=== PATIENT | female | born 1995 | race Caucasian/White ===

== ENCOUNTER 2020-04-09 00:34 | Inpatient (IN) | payer OTHER ==
[~2020-04-09] VITALS: Ht 160 cm; Wt 70.4 kg
--- NOTE | 2020-04-09 00:45 | NUR ---
PATIENT ARRIVED TO FLOOR VIA WC. ADMISSION ASSESSMENT COMPLETE, VITALS COMPLETE, VSS. A+O. IV IN R AC UPON ARRIVAL, BRISK BLOOD RETURN, FLUSHES WELL. LOOKBACK COORDINATOR IN ROOM, DR JOSHI IN ROOM TO CONSULT. NEW ORDERS RECEIVED. PT STATES NO PAIN AT THIS TIME, NO NAUSEA OR DISCOMFORT. ORIENTED TO ROOM. CALL LIGHT IN REACH, WILL CONT TO MONITOR.
--- NOTE | 2020-04-09 01:50 | NUR ---
PT ON PHONE, STATED TO LISTENER THAT SHE WAS IN "REAL PAIN", DEMONSTRATING ANXIETY RE: UPCOMING PROCEDURE. POST CALL, THIS RN ASSESSED PAIN TO WHICH PT REPORTS NO PAIN OR DISCOMFORT AT ALL, AND REFUSES PAIN MEDICATIONS. THIS RN ENCOURAGED PT TO DISCUSS ANY CONCERNS OR QUESTIONS RELATED TO PLAN OF CARE/SURGERY/ETC, PT STATES NO CONCERNS AT THIS TIME.
--- NOTE | 2020-04-09 02:46 | NUR ---
THIS RN IN ROOM TO HAVE CONSENT TO SURGERY FORM SIGNED. PT STATES NO QUESTIONS AT THIS TIME, JUST OVERALL ANXIOUS ABOUT HAVING PROCEDURE. WARM BLANKETS PROVIDED, PT RESPONDED WELL TO VERBAL REASSURANCE. CALL LIGHT IN REACH. WILL CONT TO MONITOR.
--- NOTE | 2020-04-09 04:05 | NUR ---
ROUNDED ON PATIENT, IN BED WITH EYES CLOSED. BREATHING EVEN AND UNLABORED. NO APPARENT NEEDS. CALL LIGHT IN REACH.
--- NOTE | 2020-04-09 05:23 | NUR ---
VITALS COMPLETE, ASSESSMENT COMPLETE. PT STATES DOES NOT NEED TO VOID. IVF INFUSING WNL. SCHEDULED MEDS GIVEN, PRN TORADOL ADMINISTERED FOR 7/10 ABDOMINAL PAIN. PT REPORTS NO OTHER NEEDS AT THIS TIME, CALL LIGHT IN REACH.
--- NOTE | 2020-04-09 06:41 | NUR ---
PT ENCOURAGED TO GET UP TO BR TO VOID, 300 ML OUT. PT DROWSY. BACK TO BED, BLANKETS PROVIDED, IVF INFUSING WNL. I/O'S COMPLETE. CALL LIGHT IN REACH, NO OTHER NEEDS AT THIS TIME.
--- NOTE | 2020-04-09 07:19 | NUR ---
In room for shift report from Amanda REED and Mary REED. Report included: Pt admitted for RUQ abdominal pain, due to have a Laparoscopic Cholecystectomy today sometime. Pt has been very groggy, had some pain this morning getting her PRN pain med. Pt is NPO. Pt is getting LR @ 125 and voiding sufficiently. Pt currently in bed, groggy but able to greet us upon introdctions. Pt lying in bed, side rails up x2, table and call light within reach.
--- NOTE | 2020-04-09 08:09 | NUR ---
PATIENT RESTING IN BED. WHITE BOARD UPDATED. SETS UP BATHROOM FOR SHOWER. HIBICLEANS PROVIDED FOR SHOWER. IV WRAPPED. CALL LIGHT WITHIN REACH. NO OTHER NEEDS AT THIS TIME
--- NOTE | 2020-04-09 09:15 | NUR ---
In room for assessment and med pass. Pt able to get all meds without difficulty. Pt IV fluids restarted. Pt assessment complete, VSS. Pt reports minimal pain in her RUQ abdomen, denies nausea. Pre-procedure checklist completed, LR fluids hung with straight tubing on the bed IV pole. Pt in bed, table and call light within reach.
--- NOTE | 2020-04-09 09:19 | NUR ---
SWABBED BOTH NOSTRILS FOR RAPID COVID TEST
--- NOTE | 2020-04-09 09:26 | NUR ---
PATIENT RESTING IN BED. RN IN ROOM. VITAL SIGNS AND I&O DONE. CALL LIGHT WITHIN REACH. NO OTHER NEEDS AT THIS TIME
[2020-04-09] MEDS ORDERED: HYDROCODON-ACE1 EA10 PO (09:31)
[2020-04-09] MEDS ORDERED: METRONIDAZOLE500 MG PO (09:32)
--- NOTE | 2020-04-09 09:50 | NUR ---
Pt taken to surgery with photo graphics librarian and chart. Pt has fluids hung and SCDs on bed.
--- NOTE | 2020-04-09 10:30 | NUR ---
Attempted to see Rere, she has left for surgery.
--- NOTE | 2020-04-09 12:45 | NUR ---
CHECKING ON PT DISCOVERED SHE WAS TAKEN TO OR FOR SURGERY. WILL FOLLOW
--- NOTE | 2020-04-09 13:44 | NUR ---
04/09/20 1344 Sheets,Stacy 1336 PT ARRIVED TO PACU ON 6L VIA MASK, PT ASLEEP AND JAW THRUST USED OFF AND ON TO MAINTAIN AIRWAY. VSS. 1341 PT WOKE TO TACTILE STIMULI AND IS REORIENTED TO PACU. PT DENIES PAIN AND EASILY FALLS BACK TO SLEEP.
--- NOTE | 2020-04-09 15:44 | NUR ---
To room for rounding and hourly vitals. Pts VSS, breathing even and unlabored. Pt given water, jello, and new bag of LR hung. Pt would like to sleep. Pt in bed, side rails up x3, table and call light within reach.
--- NOTE | 2020-04-09 16:30 | NUR ---
In room for hourly rounding. Pts VSS. Pt in bed, table and call light within reach.
--- NOTE | 2020-04-09 17:04 | NUR ---
In room for post op vitals and rounding. Pt in bed, resting, eyes closed. Pt alert and oriented with greeting. Pts VSS, denies pain and nausea at this time. Pt able to keep down water, ice amd jello. Pt sitting in bed, semi fowlers, having dinner. Table and call light within reach.
--- NOTE | 2020-04-09 17:28 | NUR ---
MED REC COMPLETE
--- NOTE | 2020-04-09 17:42 | NUR ---
PATIENT USING THE BATHROOM. PATIENT BACKS TO BED. ONE PERSON ASSISTING. FRANCISCO IS LEAKING. RN NOTIFIED. VITAL SIGNS DONE BY RN. I&O DONE. CALL LIGHT WITHIN REACH. NO OTHER NEEDS AT THIS TIME
--- NOTE | 2020-04-09 17:59 | NUR ---
In room for med pass. Pt reports 5/10 pain and got PRN tylenol as ordered. pt able to take med without difficulty. Pt in bed, table and call light within reach.
--- NOTE | 2020-04-09 19:00 | NUR ---
REPORT RECEIVED FROM PAULA REED. PT RESTING IN BED, UP TO BR TO VOID, VITALS COMPLETE. CALL LIGHT IN REACH, WILL CONT TO MONITOR.
--- NOTE | 2020-04-09 20:16 | NUR ---
SCHEDULED MEDICATIONS ADMINISTERED, VITALS AND I/O'S COMPLETE, ASSESSMENT COMPLETE. PT DROWSY IN BED. LAP SITES X4 WITH SMALL AMOUNT DRIED DRAINAGE. BOWEL TONES ACTIVE, PT STATES NO PAIN AT THIS TIME "JUST TIRED". IVF INFUSING WNL. SCDS IN PLACE. CALL LIGHT IN REACH, NO NEEDS AT THIS TIME.
--- NOTE | 2020-04-09 21:00 | NUR ---
CALL LIGHT ANSWERED. SBA TO THE BATHROOM AND BACK TO BED. NO OTHER NEEDS AT THE TIME. SCD'S ON.
--- NOTE | 2020-04-09 22:45 | NUR ---
ROUNDED ON PATIENT, IN BED WITH EYES CLOSED. RR EVEN, UNLABORED BREATHING. NO APPARENT DISTRESS OR NEEDS. WILL CONT TO MONITOR.
--- NOTE | 2020-04-10 00:45 | NUR ---
ROUNDED ON PATIENT, IN BED WITH EYES CLOSED. BREATHING UNLABORED. NO APPARENT NEEDS. CALL LIGHT IN REACH.
--- NOTE | 2020-04-10 02:16 | NUR ---
VITALS AND I/O'S COMPLETE, ASSESSMENT COMPLETE. SCHEDULED MEDICATIONS ADMINISTERED. PT IN BED, DROWSY, STATES NO PAIN, NO NEEDS. CALL LIGHT IN REACH, WILL CONT TO MONITOR.
--- NOTE | 2020-04-10 04:50 | NUR ---
ROUNDED ON PATIENT, NEW BAG IVF HUNG, PT ASLEEP IN BED. NO NEEDS AT THIS TIME, WILL CONT TO MONITOR.
--- NOTE | 2020-04-10 07:14 | NUR ---
In room for shift report from Amanda RN & Joanne RN. Pt report included: Pt had not gotten up much last night, but was able to void quantity sufficient. Pt denied pain and nausea throughout the evening. Pt was reported to be very groggy last night. Pt still having irritated throat, likely from her surgery and airway placed. Pt currently lying in bed, eyes closed, breathing even and unlabored, table and call light within reach.
--- NOTE | 2020-04-10 08:27 | NUR ---
PATIENT WAS STILL SLEEPING WILL CHECK BACK IN AND SEE IF PATIEINT WANTS BREAFAST AND TO TAKE A WALK IN THE HALLWAY
--- NOTE | 2020-04-10 08:50 | NUR ---
In room for med pass and assessment. Pts unbilical lap site was bleeding outside of normal amounts, had saturated part of her gown and the blanket above it, about three layers of cloth. The umbilical lap site had some congealled blood pooled within the area under the steri strips. I calmed and reassured the pt with therapeutic communication. district home economics agent was in meeting, another RN called to beside. district home economics agent also notified to assess. All three RNs agreed to clean the blood around the area and leave the congealed blood since it was under the steri strips and seems to bleed actively when we move it. ABD pad covered over the site and taped. Pt calm and VSS. MD Coombs notified over the phone. requests that we keep "gauze" or abd covering it until he can get here in an hour or so. Pt in bed, side rails up, table and call light within reach.
--- NOTE | 2020-04-10 09:00 | NUR ---
Spoke with Rere. She lives in [place] and see Dr. Umanzor, she is unsure of their first name. She lives with her boyfriend in a [place]. He works and will assist her with any needs. Friend will drive her to [place]. Plans on dc to home when cleared by Dr. Duckworth.
--- NOTE | 2020-04-10 10:00 | NUR ---
In room for rounding. Pt umbilical lap site dressing has blood soaking into side touching site, but hasn't soaked through ABD pad. Site assessed and does not appear to be actively bleeding. Blood still pooled and congealed around umbilicus. Pt reports minimal tolerable pain, and no nausea. Pt requests to remove SCDs "for a bit" because her legs are sweating. Pt was told we could remove them for a while, then when I come back around 11 for a med pass, I will help her to the bathroom and we will restart her SCDs then. Pt in bed, side rails up x2, table and call light within reach.
--- NOTE | 2020-04-10 10:11 | NUR ---
PATIENT IS IN BED, VITAL SIGNS DONE, PATIENT NEEDED NOTHING ELSE AT THIS TIME
--- NOTE | 2020-04-10 11:03 | NUR ---
In room for med pass. Pt still feeling somewhat sleepy. Pt medical technologist generalist complete, pt disconnected from her IV so she can walk to the bathroom and so we can ambulate in the halls. Pt up to bathroom and able to void. Pt able to ambulate with SBA, pt walked down to CCU wall and back. Pt denies nausea and dizziness. Pt reports tolerable 5/10 pain. New ABD pad placed over umbilical lap site. Pt back to bed, SCDs on, table and call light within reach. IV fluids restarted as ordered.
--- NOTE | 2020-04-10 12:04 | NUR ---
In room, MD at bedside. MD assessed pts umbilical incision site and Sherie drain site. MD pulled external clot and cleaned the site, covered it in gauze and tape. MD also pulled sherie drain and covered it in gauze and tape. Pt tolerated well. MD reports that pt will stay overnight one more day to observe and monitor bleeding. Pt has been able to pass gas but no BM yet. Pt voiding without difficulty, quantity sufficient. Pt in bed, table and call light within reach.
--- NOTE | 2020-04-10 13:29 | NUR ---
In room for rounding. Pt reports 5/10 pain and denies nausea. Pt VSS. Pt up to bathroom. Pt able to ambulate in hallways, walking to CCU wall and back. Pt dressing on umbilical lap site was saturated, new gauze placed, and new tape applied. Pt back to bed, table and call light within reach.
--- NOTE | 2020-04-10 14:14 | NUR ---
In room for pt care. Pt reports 7/10 intolerable pain after walking this afternoon. PRN pain med given. Pt in bed, table and call light within reach. Breathing even and unlabored, VSS.
--- NOTE | 2020-04-10 14:26 | NUR ---
PT IS ALERT, ORIENTED AND WILL STAY AGAIN TONIGHT DUE TO SLIGHT BLEEDING AT INCISION.PT STATED THAT SHE FELT BETTER STAYING TONIGHT. PT HAS RECENTLY MOVED FROM [facility], AND STILL IN ADJUSTMENT. CONCERNED ABOUT PREPARATIONS FOR WINTER, GAVE ENCOURAGEMENT. BLESSING GIVEN, WILL FOLLOW
--- NOTE | 2020-04-10 15:10 | NUR ---
In room for rounding. Pt resting in bed, eyes closed, breathing even and unlabored. Table and call light within reach.
--- NOTE | 2020-04-10 17:38 | NUR ---
In room for rounding. Pt in bed, denies nausea at this time reports 3/10 tolerable pain. Pt up to bathroom and able to void. Pt back to bed. New abd and gauze placed over umbilical lap site which is still bleeding at a slow trickle. Pt in bed, sitting up, having dinner. Table and call light within reach.
--- NOTE | 2020-04-10 20:35 | NUR ---
PATIENT REPORT GIVEN TO ME BY BRIANNA MURPHY, AND PATIENT RESTING IN BED PLAYING ON HER PHONE AT THIS TIME. CALL LIGHT IN REACH.
--- NOTE | 2020-04-10 21:01 | NUR ---
PER PERMANENT MOLD SUPERVISOR PATIENT ASKED FOR COOKIES. PROVIDED. ICE WATER REFILLED. NO OTHER NEEDS AT THIS TIME.
--- NOTE | 2020-04-10 21:34 | NUR ---
EXHIBIT BUILDER WAS ASKED BY CECIL REED TO TALK WITH PT ABOUT HER DRESSING. SHE IS APPREHENSIVE ABOUT IT AND STATES DURING THE DAY THE DRESSING WAS CHANGED FREQUENTLY. CECIL REED AND THIS RN EXPLAINED TO THE PT THAT WE DO NOT HAVE ORDERS TO CHANGE THE DRESSING AND THAT IT IS NOT LEAKING AND DOING FINE SO WE DO NOT WANT TO INTRODUCE MORE BACTERIA NOR CAUSE A CLOT TO BREAKFREE CAUSING MORE BLEEDING. PT STATED SHE WANTS US TO AT LEAST LIFT THE DRESSING AND LOOK AT IT SO SHE WOULD FEEL BETTER. PER PT REQUEST THIS RN PULLED CORNER OF TAPE UP TO SEE THE GAUZE UNDERNEATH, IT HAS SANGUINOUS DRAINAGE BUT THE WHOLE GAUZE WAS NOT SATURATED AND IT WAS NOT LEAKING. ADVISED THE PT WE WILL CHECK ON IT AND LONG IT IS NOT LEAKING IT IS DOING IT'S JOB. PT APEARED HAPPY WITH THIS AND DENIES FURTHER NEEDS.
--- NOTE | 2020-04-10 23:30 | NUR ---
PATIENT RESTING QUIETLY, EYES CLOSED, NO SIGNS OF DISTRESS OR PAIN, CALL LIGHT IN REACH. RESPIRATIONS REGULAR AND EVEN.
--- NOTE | 2020-04-10 23:59 | NUR ---
PATIENT RESTING QUIETLY IN BED, SCD'S ON EYES CLOSED, RESPIRAATIONS REGULAR AND EVEN AND CALL LIGHT IN REACH.
--- NOTE | 2020-04-11 01:29 | NUR ---
PATIENT RESTING QUIETLY SUPINE WITH REGULAR EVEN RESPIRATIONS, EYES CLOSED, CALL LIGHT IN REACH.
--- NOTE | 2020-04-11 03:06 | NUR ---
PATIENT 3AM ANTIBIOTIC HUNG, PATIENT'S PAIN IS UNDER CONTROL, PATIENT UP TO THE BATHROOM 1PSBA AND THEN BACK TO BED 1PSBA, PATIENT GOING TO TRY AND GO BACK TO SLEEP. CALL LIGHT IN REACH.
--- NOTE | 2020-04-11 04:46 | NUR ---
PATIENT JUST WOKE UP AND SAID SHE WAS HAVING A NECK ACHE. PATIENT REQUESTED TO HAVE SOMETHING FOR 8/10 NECK ACHE. 650MG PO TYLENOL GIVEN. PATIENT A LITTLE CONFUSED, SHE HAD THE DATE RIGHT, BUT THOUGHT IT WAS EVENING NOT MORNING, REORIENTED EASILY AND IS GOING TO TRY AND GET SOME MORE SLEEP BEFORE BREAKFAST. CALL LIGHT IN REACH.
--- NOTE | 2020-04-11 05:08 | NUR ---
PATIENT WAS VERY ANXIOUS AT THE BEGINING OF THE SHIFT AND WANTING ME TO CHANGE HER ABD DRESSING, THERE WAS SOME BLEEDING ON DAYSHIFT AROUND THE UMBILICUS LAP SITE, BUT THE DREWSSING IS CDI, FOAM TAPE OVER A ABD PAD AND SOME GAUZE. PATIENT IS WORRIED ABOUT CONTINUED BLEEDING AND INFECTION IF I DIDN'T LOOK UNDERS THE DRESSING. HAD MING THE CHARGE NURSE COME IN TO TALK WITH PATIENT WELL, THAT REMOVING THE CDI DRESSING COULD START BLEEDING OVER AND THAT THE MORE WE OPENED UP THE DRESSING THE GREATER RISK TO INFECTION. PATIENT FINALLY SEEMED TO UNDERSTAND WHAT WE WERE TRYING TO TELL HER. PATIENT WAS C/O 11/16 ABD PAIN AND WAS GIVEN 6MG IV MORPHINE AND SOME IV TORADOL AND THIS TOOK CARE OF HER PAIN UP TO THIS PRESENT TIME. PATIENT AMBULATES WELL TO THE BATHROOM WITH 1PSBA AND BACK TO BED, DRESSING REMAIN CDI ON THE ABD AND OTHER 3 LAB SITES HAVE DRIED STERISTRIPS IN PLACE. PATIENT HAS APPEARED TO SLEEP WELL MOST OF THE SHIFT UNLESS GETTING UP TO USE THE BATHROOM. PATIENT CONTINUES TO REST EYES CLOSED WITH CALL LIGHT IN REACH.
--- NOTE | 2020-04-11 07:00 | NUR ---
In room for shift report from Hill REED. Report included: Pt was very anxious about her lap umbilical lap site bleeding throughout the night. Pt had reached pain of 7/10 last night and got 6 of morphine. Pt slept throughout the rest of the night. Pt currently, up to bathroom. Pt back to bed, fluids reconnected and started, table and call light within reach.
--- NOTE | 2020-04-11 07:40 | NUR ---
UP TO BATHROOM, DRSG CDI TO UMBILICUS THIS AM, PT STATES SHE IS HUNGRY AND HAS ORDERED BREAKFAST, DOES NOT WANT TO SIT UP IN CHAIR YET, STATES ITS TO COLD, TEMP ADJUSTED IN ROOM. DENIES ANY NEEDS. CALL LIGHT IN EASY REACH.
--- NOTE | 2020-04-11 08:00 | NUR ---
DRSG WAS LOOSE ON R EDGE AND JASMINE RED BLOOD WAS NOTED DRAINING WHEN PT WALKED INTO BATHROOM, NOTED BLOOD ON PAD AND DRAW SHEET ON BED WELL AFTER PT WAS UP. REMOVED DRSG WHEN PT RETURNED TO BED AND LARGE BLOOD CLOT WAS OVER UMBILICUS AND EXTENDING ALONG R SIDE OF DRSG, UNABLE TO TELL UNTIL REMOVED IF ACTIVELY BLEEDING. NO BLOOD FROM UMBILICUS AND CLEAN GAUZE DRESSING AND FOAM TAPE REAPPLIED. WILL MONITOR CLOSELY.
--- NOTE | 2020-04-11 10:33 | NUR ---
In room for assessment and med pass. Pt reports 8/10 intolerable pain, no nausea. Pt given PRN toradol per orders. Pt up to chair, ice pack given for abdomen. Pt denies dizziness upon standing. Pt agrees to ambulate this morning. Pt practices deep breathing exercises x10. Pts umbilical lap site was changed new sterile gauze and tape applied. Pts site seems to be bleeding at a trickle. Pt denies further needs at this time. Pt in chair, table and call light within reach.
--- NOTE | 2020-04-11 11:11 | NUR ---
In room for med pass. Pt in chair. Pt denies nausea and reports 3/10 pain. Pt would like to go back to bed. Pt ABX started and given as ordered per protocol. Pt in bed, table and call light within reach.
--- NOTE | 2020-04-11 11:30 | NUR ---
Donita GUERRA to floor. Zainab RN and this RN report to MD about the pts bleeding from her umbilical site, that the pt was given 6mg of morphine last night along with her toradol, and that when we got here this morning, the site had another large clot and blood had dripped from the site around to the pts back in the bed. informed that the dressing had to be changed x4 yesterday. asked if the pt was getting oral pain meds and was told that she had IV meds last night and we gave her IV toradol this morning for 8/10 pain, in order to get her up and ambulating. stated "I don't care about what pain they report, she needs to be on oral pain meds" So I have to go in there now and type and order for only oral pain meds?" He also mentioned "This is a nursing problem not a problem for me." In response to all of this, states "You know what, nevermind, I'll see her later, I'm not seeing her now. Wasting my time." And leaves the floor. Pt bleeding not assessed by . Pt not assessed by MD. No new orders given.
--- NOTE | 2020-04-11 12:40 | NUR ---
In room for rounding. Pt up to bathroom, and back to bed. Pt reports 3/10 tolerable pain, denies nausea at this time. Pt in bed, table and call light within reach.
--- NOTE | 2020-04-11 14:47 | NUR ---
In room for rounding. Pt resting in bed, lying down, eyes closed, breathing even and unlabored, table and call light within reach.
--- NOTE | 2020-04-11 15:30 | NUR ---
In room for rounding. Pt resting in bed, eyes closed, breathing even and unlabored, table and call light within reach.
--- NOTE | 2020-04-11 15:37 | HP ---
[facility] [address], [place] [address] Signed ADMISSION DATE: 04/09/2020 REASON FOR ADMISSION: Acute calculous cholecystitis, possible choledocholithiasis. HISTORY OF PRESENT ILLNESS: This 24-year-old white woman lives in [place], [place]. She is accompanied by her boyfriend. I was called late in the evening on April [address] Tia Umanzor in [place], [place]. The patient presented once again to his care with severe epigastric and abdominal pain. The patient has been seen the night before with similar findings and a CT scan was performed, which was said to be normal. Lab studies and so forth that were obtained initially were normal, but repeat labs showed elevated liver enzymes including a bilirubin of 1.6. The patient had been anticipated to undergo ultrasound evaluation of the gallbladder for possible biliary disease, but [facility] no longer has an applied technologist. A plan for ultrasound evaluation in [place], [place] was scheduled for today. The patient did not show for her visit as her symptoms had improved and she carries no health insurance and therefore did not show further evaluation. Her representation to Dr. Umanzor prompted the lab studies, which showed elevated liver enzymes including bilirubin and concern for possible choledocholithiasis as her symptoms were significantly increased. I was called by Dr. Umanzor in assistance and accepted her in transfer by personally owned vehicle for further evaluation. Since her arrival to the hospital, she continues to have epigastric and right subcostal pain. A gallbladder ultrasound was performed at the bedside, which I witnessed at approximately 1:00 a.m. This showed multiple stones in the gallbladder, gallbladder wall thickening, and a common bile duct slightly dilated at 5 mm. PAST MEDICAL HISTORY: Rather unremarkable. She does smoke cigarettes. She denies any drug use. FAMILY HISTORY: She has family history of biliary disease and a sister who had cholecystectomy a number of years ago. SOCIAL HISTORY: She is unemployed and lives in [place], [place] and is accompanied by her boyfriend. Electronically Signed By: ANTONIO JOSHI MD 04/11/20 1537 PATIENT NAME: TING ROYAL HISTORY AND PHYSICAL DATE OF : [birth year] REPORT #: [id number] PHYSICIAN: ANTONIO JOSHI MD PCP: TIA UMANZOR MD REPORT IS CONFIDENTIAL AND NOT TO BE RELEASED WITHOUT AUTHORIZATION [facility] [address], [place] [address] Signed REVIEW OF SYSTEMS: She denies any shortness of breath or chest pain. She has had no dysphagia, dysuria, hematemesis, or blood per rectum. PHYSICAL EXAMINATION: GENERAL: Pleasant white woman, who does not look systemically toxic. HEENT: Mucous membranes are slightly dry. Trachea is midline. CHEST: Clear. HEART: Regular without murmur. ABDOMEN: Reasonably flat. There is no sign of abdominal distention. Shows no sign of icterus. Abdominal palpation shows tenderness in epigastric and right subcostal area. EXTREMITIES: Show no clubbing, cyanosis, or edema. LABORATORY STUDIES: From [facility] show a white count of 8.5, hematocrit 38, platelets 348,000. Liver enzymes show an alkaline phosphatase of 119, AST of 325, and ALT of 501, bilirubin 1.4. Glucose is 122. Electrolytes are normal. Lipase 18. Amylase 37. ASSESSMENT: The patient has what appears to be acute calculous cholecystitis and possible choledocholithiasis based on imaging studies, liver enzymes and so on. I discussed this with the patient in detail. I recommended continued IV fluids, parenteral pain medication, IV antibiotics, and consideration for cholecystectomy later today. The risks of bleeding, infection, bile duct injury, need for open procedure, need for common duct exploration and so forth were reviewed. We will give her a patient education manual as well. MD TRUPTI Caldwell/EDGARDL /[id number] cc: Tia Umanzor MD Copies: TIA UMANZOR MD Electronically Signed By: ANTONIO JOSHI MD 04/11/20 1537 PATIENT NAME: TING ROYAL HISTORY AND PHYSICAL DATE OF : [birth year] REPORT #: [id number] PHYSICIAN: ANTONIO JOSHI MD PCP: TIA UMANZOR MD REPORT IS CONFIDENTIAL AND NOT TO BE RELEASED WITHOUT AUTHORIZATION [facility] [address], [place] [address] Signed ~ Electronically Signed By: ANTONIO JOSHI MD 04/11/20 1537 PATIENT NAME: TING ROYAL HISTORY AND PHYSICAL DATE OF : [birth year] REPORT #: [id number] PHYSICIAN: ANTONIO JOSHI MD PCP: TIA UMANZOR MD REPORT IS CONFIDENTIAL AND NOT TO BE RELEASED WITHOUT AUTHORIZATION
--- NOTE | 2020-04-11 15:37 | OR ---
[facility] [address], [place] [address] Signed DATE OF OPERATION: 04/09/2020 SURGEON: Antonio Joshi MD PREOPERATIVE DIAGNOSIS: Acute calculous cholecystitis suspicion for common duct stones. POSTOPERATIVE DIAGNOSIS: Acute calculous cholecystitis with choledocholithiasis (common duct stone). PROCEDURE: 1. Laparoscopic cholecystectomy with cholangiogram and laparoscopic common duct exploration. 2. Percutaneous extraction of common duct stone by flexible choledochoscopy. 3. Surgeon-directed fluoroscopy (all prolonged, complicated and difficult). ANESTHESIA: General endotracheal, Antonio Khan CRNA and local 10 mL of 0.25% Marcaine with epinephrine. INDICATION: This 24-year-old white woman is a patient of Dr. Umanzor. I was called late last night. The patient had been under his care with complaints of right upper abdominal pain. Due to logistical circumstances, there was no ultrasound capability at her initial evaluation at the [facility] and she was set up for an outpatient ultrasound in [place] yesterday. She did not show up for the study as she is uninsured. She had recurrent symptoms and was evaluated by Dr. Umanzor and I was called asking for assistance in her evaluation, which was strongly suspect for acute cholecystitis and possible common duct obstruction considering liver enzymes were elevated and bilirubin mildly elevated at 1.4. She finally arrived at this hospital at 1:00 a.m. at which time, I saw her and some of her symptoms of right subcostal pain persisted. She was admitted and given fluid resuscitation, IV antibiotic Ancef and an ultrasound performed upon admission, which confirmed multiple gallstones and a slightly dilated common duct at 5 mm. She is now to undergo cholecystectomy preferred by laparoscopic approach, possible common duct exploration depending on findings. She understands the risk of bleeding, infection, bile duct injury, need for open procedure, and particularly possible need for open common duct exploration. She understands and she wished to proceed. Electronically Signed By: ANTONIO JOSHI MD 04/11/20 1537 PATIENT NAME: TING ROYAL OPERATIVE REPORT DATE OF : [birth year] REPORT #: [id number] PHYSICIAN: ANTONIO JOSHI MD PCP: TIA UMANZOR MD REPORT IS CONFIDENTIAL AND NOT TO BE RELEASED WITHOUT AUTHORIZATION [facility] [address], [place] [address] Signed FINDINGS: Indeed the gallbladder was quite acutely inflamed and markedly distended requiring decompression. Initial cholangiogram showed a large stone in the distal common duct, though there was some flow of contrast into the duodenum. This prompted a laparoscopic transcystic duct common duct exploration and ultimately percutaneous flexible choledochoscopy allowed for extraction of the common duct stone. Completion cholangiogram showed no sign of filling defect and no complications. The procedure was prolonged, complicated, and difficult on the basis of the common duct component of the operation, but was performed laparoscopically to her great advantage. DESCRIPTION OF PROCEDURE: The patient was brought to the operating room, and given a general endotracheal anesthetic. Arguello catheter was placed anticipating possible common duct exploration. Intraoperative antibiotic Ancef was once again given. Sequential compression device stockings were in place. The abdomen was palpated and found to have no sign of ascites or palpable mass. The abdomen was prepared with chlorhexidine solution and draped sterilely. An infraumbilical incision was made and using an open Flaquita cannula technique pneumoperitoneum was achieved to a level of 14 mmHg of carbon dioxide gas. Intraabdominal inspection showed no sign of ascites or carcinomatosis. The gallbladder was quite markedly inflamed and distended. Liver appeared normal. Three additional trocars were placed in usual configuration in the subxiphoid, right midclavicular, and right anterior axillary line. The gallbladder could not be grasped. It was so distended and on that basis was decompressed with a laparoscopic trocar device. The puncture site was grasped and the gallbladder elevated cephalad. Lateral retraction on the infundibulum of gallbladder allowed for dissection of the triangle of MATILDA. The cystic duct appeared somewhat dilated as did the biliary tree which was somewhat visible via relatively thin peritoneum overlying the portal triad. A clip was applied across gallbladder cystic duct junction and a transverse choledochotomy made in the cystic duct. Retrograde milking of the cystic duct showed clear bile. Using the Farah type cholangiocatheter intraoperative cholangiography was undertaken. Under fluoroscopic control, initial cholangiography was undertaken showing free flow of contrast in the biliary tree with a somewhat dilated common duct and a distal common duct filling defect consistent with stone. This was not a small stone based on its appearance and quite unlikely would be able to pass spontaneously. On that basis, plans were made for a laparoscopic common duct exploration. An additional 5 mm taut trocar was placed in the epigastric area in alignment with the cystic duct. This allowed for placement of a flexible J-wire down the cystic duct and on fluoroscopic control, passed into the duodenum without impediment. Subsequent to that, an ERCP balloon catheter was passed over the wire and the radiopaque markers Electronically Signed By: ANTONIO JOSHI MD 04/11/20 1537 PATIENT NAME: TING ROYAL OPERATIVE REPORT DATE OF : [birth year] REPORT #: [id number] PHYSICIAN: ANTONIO JOSHI MD PCP: TIA UMANZOR MD REPORT IS CONFIDENTIAL AND NOT TO BE RELEASED WITHOUT AUTHORIZATION [facility] [address], [place] [address] Signed aligned over the ampulla itself. The ampulla was dilated fully with contrast solution within the balloon. To be certain that the dilation was complete, the catheter was withdrawn over the wire to a slightly higher position again allowing for dilation. Under laparoscopic visualization, the catheter was then withdrawn to the area of the cystic duct and dilation undertaken under direct visualization so as to allow for placement of a choledochoscope if necessary and to allow for extraction of the offending stone by a transcystic approach. Once this was completed, the wire and the catheter were removed. An Farah type cholangiocatheter was passed into the cystic duct and the cystic duct flushed and repeat cholangiogram undertaken. This showed flow into the duodenum, but it is highly probable incomplete clearance of the duct had occurred and on that basis, flexible choledochoscopy was undertaken. This was undertaken at the trocar site. A flexible choledochoscope passed down the cystic duct into the common bile duct and without much problem into the duodenum itself. The duodenal mucosa was normal. It appeared that the duct had been reasonably cleared. Careful withdrawal of the scope, however, revealed indeed a sizable stone in the mid common bile duct, which appeared somewhat square in configuration. A spiral basket was passed down the flexible choledochoscope with attempts to engage the stone. Multiple attempts were required as the stone was of a size that did not easily accommodate the basket. Ultimately it was grasped and the catheter and the flexible choledochoscope withdrawn in tandem from the system. The stone seemed to get hung up, but at the junction between the common bile duct and the cystic duct and manipulation of that area with forceps carefully applied ultimately allowed for extraction of the stone still within the spiral basket. Irrigation was undertaken. There was free flow of contrast of bile in a retrograde fashion from the cystic duct. Flexible choledochoscopy was once again performed this time showing no sign of filling defect and easy passage into the duodenum. The choledochoscope was removed and the cystic duct was triply clipped and divided and the gallbladder dissected free in a retrograde fashion. Cystic arterial branches were clipped and divided as necessary. The gallbladder was extracted after being placed in an endobag through the infraumbilical port, opened on the back table and found to have numerous yellow 5 mm gallstones which were multifaceted. Irrigation was undertaken of the subhepatic space. There was no sign of bile leak, bleeding or other problems. Mindful of the cholangiocatheter following extraction of the stone was normal and without sign of leakage, particularly at the common and cystic duct junction, still it was advisable that a 7 mm flat Pop drain be placed in the subhepatic space. This was accomplished without problem. Excess irrigation and fluid was suctioned free. One of the right-sided 5 mm trocar sites had some oozing requiring cautery. The drain was attached to skin with nylon suture. Excess irrigation and fluid was suctioned free. The trocars removed under direct visualization showing no sign of bleeding. The infraumbilical fascial incision was reapproximated with interrupted 0 Vicryl suture as well as a running 0 PDS suture. A 10 mL of 0.25% Marcaine with epinephrine was injected Electronically Signed By: ANTONIO JOSHI MD 04/11/20 1537 PATIENT NAME: TING ROYAL OPERATIVE REPORT DATE OF : [birth year] REPORT #: [id number] PHYSICIAN: ANTONIO JOSHI MD PCP: TIA UMANZOR MD REPORT IS CONFIDENTIAL AND NOT TO BE RELEASED WITHOUT AUTHORIZATION [address] [address] Signed locally. The skin was closed with interrupted 3-0 Vicryl after irrigation. Steri-Strips were applied. She was ultimately extubated, transferred to the recovery room in good condition having suffered no complications. Sponge, needle, and counts were reported as correct x3. The operation was prolonged, complicated, and difficult on the basis of the common duct exploration. The common duct exploration took about 1 hour on its own, but was accomplished safely and with great benefit to her, so as to avoid transfer for ERCP or even open operation for common duct exploration by that technique. MD TRUPTI Caldwell/EDGARDL /[id number] cc: Tia Umanzor MD Copies: TIA UMANZOR MD ~ Electronically Signed By: ANTONIO OJSHI MD 04/11/20 1537 PATIENT NAME: TING ROYAL OPERATIVE REPORT DATE OF : [birth year] REPORT #: [id number] PHYSICIAN: ANTONIO JOSHI MD PCP: TIA UMANZOR MD REPORT IS CONFIDENTIAL AND NOT TO BE RELEASED WITHOUT AUTHORIZATION
--- NOTE | 2020-04-11 16:58 | PATH ---
[facility] [address] [facility] [place], [place] [address] Signed SPECIMEN(S): A GALLBLADDER AND STONES SPECIMEN SOURCE: A. GALLBLADDER AND STONES CLINICAL HISTORY: Cholelithiasis, RUQ pain, LFT elevation. FINAL PATHOLOGIC DIAGNOSIS: Gallbladder and stones: - Chronic calculus cholecystitis. JVR:cml:C2NR MICROSCOPIC EXAMINATION: Histologic sections of all submitted blocks are examined by light microscopy. These findings, together with the gross examination, support the pathologic diagnosis. GROSS DESCRIPTION: The specimen, labeled "EH, A.," and designated on the requisition "gallbladder and stones," is received in formalin and consists of Specimen: Previously opened gallbladder. Dimensions: 7.0 x 3.3 x 1.6 cm. Serosa: Green and smooth. Cystic Duct: Unobstructed, narrowed. Calculi: Yellow, faceted calculi measuring 4.0 x 4.0 x 1.0 cm in aggregate. Mucosa: Bright green and mucinous/slimy. Wall thickness: Up to 0.7 cm. Lymph node: No pericystic lymph nodes are grossly identified. Additional: None. Triage Nurse sections are submitted in cassette (A1). AT (under the direct supervision of a pathologist) The Gross Description was prepared using a voice recognition system. The report was reviewed for accuracy; however, sound-alike word errors, addition and/or deletions may occur. If there is any question about this report, please contact Client Services. PERFORMING LABORATORY: The technical component was performed by [facility], [address] [place] [id number] (Anesthesia Assistant: Rivka Galindo MD; CLIA# [id number]). Professional interpretation was performed by PATIENT NAME: TING ROYAL PATHOLOGY DATE OF : [birth year] REPORT #: [id number] PHYSICIAN: [facility] PCP: TIA ARRIETA MD REPORT IS CONFIDENTIAL AND NOT TO BE RELEASED WITHOUT AUTHORIZATION [facility] [address] [place], [place] [address] Signed [facility], [place] [address] (Anesthesia Assistant: Jesus Manuel Posey M.D.). Diagnostician: Gerson Olivarez MD Pathologist Electronically Signed 04/11/2020 Copies: ~ PATIENT NAME: TING ROYAL PATHOLOGY DATE OF : [birth year] REPORT #: [id number] PHYSICIAN: [facility] PCP: TIA ARRIETA MD REPORT IS CONFIDENTIAL AND NOT TO BE RELEASED WITHOUT AUTHORIZATION
--- NOTE | 2020-04-11 17:20 | NUR ---
In room for rounding. Pt sitting up in bed, fowlers position, having dinner. Pt denies nausea and reports 2/10 pain at this time. Pt given fresh ice. Pt has table and call light within reach.
--- NOTE | 2020-04-11 18:45 | NUR ---
Pt being kept another night post lap choley procedure on . Pt has been bleeding more than normal limits from her umbilical lap site since 04/09/20. Pts wound has been assessed by MD Duckworth yesterday and today. Today DCd her heparin injections, IV pain meds, and fluids. Pt is getting PRN tylenol and motrin as ordered. Pt has been <5/10 pain all day until around 1800 this evening when she was in tears with pain in her abdomen. PRN pain meds given and ice pack given. Pt reports that ice pack really does nothing for her. Pt is tolerating a regular diet, ambulating, passing gas, and voiding quantity sufficient.
--- NOTE | 2020-04-11 19:39 | NUR ---
resting, room air, no c/o pain.
--- NOTE | 2020-04-11 20:14 | NUR ---
Resting, awakes easily, on room air, coop with assessment, clear lungs, suzie bt's. abd pressure dressing in place, dry, sl l arm, slight edema at L hand/wrist, elevated with pillows, ice to abd. no c/o pain, call light and fluds at bedside
--- NOTE | 2020-04-11 20:15 | NUR ---
IN RM TO PROVIDE PILLOW UNDER L HAND PER RN TO REDUCE SWELLING IN PT HAND
--- NOTE | 2020-04-12 00:24 | NUR ---
RESTING, NO DISTRESS, ON ROOM AIR, CALL LIGHT AT BEDSIDE
--- NOTE | 2020-04-12 03:14 | NUR ---
awakes easily, goes back to sleep, no c/o pain. umbilical dressing w/o changes
--- NOTE | 2020-04-12 05:00 | NUR ---
VITALS ARE IN, I&OS DONE, WATER PROVIDED, RN IN TO GIVE AM MED, NO FURHTER NEEDS AT THIS TIME,
--- NOTE | 2020-04-12 05:10 | NUR ---
Pt slept well. independent, on room air, abd umbilical dressing with small shadowing on right lower end, LILIAM, no bm, passing gas, c/o 5/10 abd pain, medicated. 4 lap sites intact. voiding QS, tolerating liquids well. Turns self in bed SL patent.
--- NOTE | 2020-04-12 05:58 | NUR ---
Up to br, voided large amont of yellow urine. Did own jim care.Back to bed, tolerated well, umbilical dressing with very small shadowing. other lap sites intact. tolerating fluids ell, no further c/opain, was medicated with Motrin earlier ont he shift with good pain relief.
--- NOTE | 2020-04-12 08:01 | NUR ---
HCT- 33.4, PT AWAKE, REQUESTING TO ORDER BREAKFAST, ABD DRSG WITH SCANT AMOUNT OF SHADOWING THIS AM, TYLENOL GIVEN FOR GENERAL SORENESS, GOOD BT'S, NO NAUSEA, UP TO BATHROOM INDEP. CALL LIGHT IN EASY REACH.
[2020-04-12] MEDS ORDERED: IBUPROFEN600 MG PO (08:49)
[2020-04-12] MEDS ORDERED: ACETAMINOPHEN500 MG PO (08:49)
--- NOTE | 2020-04-12 10:03 | NUR ---
PATIENT RESTING IN BED, EYES CLOSED, WOKE TO VOICE. VITALS AND I&OS CHARTED. CALL LIGHT IS WITHIN REACH, WASH CLOTH PROVIDED AND TOOTHBRUSH SET OUT FOR PATIENTS USE. NO OTHER NEEDS AT THIS TMIE
--- NOTE | 2020-04-12 11:00 | NUR ---
DISCHARGE INSTRUCTIONS GIVEN TO PATIENT, VERBALIZES UNDERSTANDING FOR S/SX TO REPORT, MEDICATIONS, KEEP DRSG ON FOR AT LEAST NEXT 48HRS, BUT OK TO SHOWER, DRSG SUPPLIES GIVEN TO PT. STATES SHE WILL CALL WEDNESDAY TO SCHEDULE FOLLOWUP APPOINTMENT, SL WAS REMOVED. FRIEND IS HERE TO TRANSPORT HOME. PHARMACY IN TO TALK TO PT.
--- NOTE | 2020-04-12 15:08 | DS ---
[facility] [address], [place] [address] Signed ADMISSION DATE: 04/09/2020 DISCHARGE DATE: 04/12/2020 REASON FOR ADMISSION: This 24-year-old white woman is a patient of Dr. Tia Umanzor. I accepted her in transfer late on the night of April 08, arriving actually in our hospital at approximately 01:00 a.m. on April 09, 2020. She had episodes of right subcostal pain, which were quite extreme with recurrent pain noted and evaluation by Dr. Umanzor showing elevated liver enzymes, elevated bilirubin, and tenderness in right subcostal area. Ultrasound was not available to him in [place], [place], and I accepted her in transfer with a high probability of acute cholecystitis, possible common duct obstruction. She was admitted for further evaluation and care. PHYSICAL EXAMINATION: GENERAL: Relatively healthy-appearing white woman, in [id number] discomfort. She was nonicteric. Trachea is midline. NON toxic. CHEST: Clear. HEART: Regular, without murmur. ABDOMEN: Soft, but there was tenderness in right subcostal area. There is no ascites and no mass. EXT: no clubbing cyanosis or edema HOSPITAL COURSE: She was admitted late in the night /early a.m. I came into the hospital to see her at 1:30 am to assure she was not systemically toxic. The hospital staff technologist was available, and therefore an ultrasound was performed at the time of her presentation, which confirmed multiple gallstones and a mildly dilated common duct of 5 mm. She was treated with iv antibiotics, fluid administration and DVT prophylaxis as well as parenteral pain control. She later in the day at approximately 01:55 p.m. underwent laparoscopic cholecystectomy. Cholangiogram showed she did have a common duct stone. On that basis, laparoscopic common duct exploration was undertaken, as well as extraction of a single common duct stone by flexible choledochoscopy. A drain was placed. There proved to be no bile leak post operatively. She was noted to have much improvement in her symptoms. She was a bit slow to advance and had some bloody wound drainage of umbilicus cleared. She had progressive improvement over time and by the day of discharge she is ambulating well, tolerating regular diet, has normalizing liver Electronically Signed By: ANTONIO JOSHI MD 04/12/20 1508 PATIENT NAME: NITHIN ROYAL DISCHARGE SUMMARY DATE OF : [birth year] REPORT #: [id number] PHYSICIAN: ANTONIO JOSHI MD PCP: TIA UMANZOR MD REPORT IS CONFIDENTIAL AND NOT TO BE RELEASED WITHOUT AUTHORIZATION [facility] [address] [place], [place] [address] Signed enzymes and her hematocrit is 32. FOLLOWUP PLAN: She is return to see me in approximately 4 weeks. She will call on Wednesday for appointment (today is Wednesday). MEDICATIONS: 1. Motrin 600 mg p.o. q.6 hours p.r.n. pain, #30. 2. Tylenol 1 g p.o. q.6 hours p.r.n. pain, #60. DISCHARGE DIAGNOSES: 1. Acute calculous cholecystitis with choledocholithiasis. 2. laparoscopic cholecystectomy with intraoperative cholangiogram and laparoscopic common duct exploration including flexible choledochoscopy and extraction of common duct stone. 2. History of childbirth x1. MD TRUPTI Caldwell/MODL /[id number] Copies: ~ Electronically Signed By: ANTONIO JOSHI MD 04/12/20 1508 PATIENT NAME: NITHIN ROYAL DISCHARGE SUMMARY DATE OF : [birth year] REPORT #: [id number] PHYSICIAN: ANTONIO JOSHI MD PCP: TIA UMANZOR MD REPORT IS CONFIDENTIAL AND NOT TO BE RELEASED WITHOUT AUTHORIZATION
== END 2020-04-12 11:17 | disposition home or self-care (01) | DRG 418 ==
LOC: MS 00:34
PROVIDERS: ADMIT Surgery; ATTEND Surgery
PROC: 0FT44ZZ Resection of Gallbladder, Percutaneous Endoscopic Approach (ICD-10-PCS; principal; 2020-04-09 10:00)
PROC: 0FC94ZZ Extirpation of Matter from Common Bile Duct, Percutaneous Endoscopic Approach (ICD-10-PCS; 2020-04-09 10:00)
DX: K80.42 Calculus of bile duct with acute cholecystitis without obstruction (principal); R17 Unspecified jaundice; Z20.828 Contact with and (suspected) exposure to other viral communicable diseases; F17.210 Nicotine dependence, cigarettes, uncomplicated
CPT/HCPCS: 00790; 36415; 74300; 76705; 80053; 82247; 82465; 83615; 84100; 84478; 84550; 85014; 85025; 88304; A9270; C1726; C1769; C1894; C9803; J0330; J0690; J1100; J1644; J1885; J2250; J2270; J2405; J2704; J2765; J3010; J7121; Q9967; U0003